=== PATIENT | male | born 1980 | race Hispanic/Latino ===

== ENCOUNTER 2018-05-09 23:04 | Emergency (ER) | payer OTHER ==
[2018-05-10] MEDS ORDERED: NA CHLORIDE 0.9% 1,000 ML ONE (00:03)
[2018-05-10] MEDS ORDERED: PANTOPRAZOLE 40 MG INJ ONE (00:17)
[2018-05-10] MEDS ORDERED: LIDOCAINE VISCOUS 2% SOLN 15 ML UDC ONE (00:20)
[2018-05-10 00:30] LABS: Absolute Lymphocytes (CBC) 2.2 K/uL (0.7-4.9); Absolute Monocytes 0.5 K/uL (0.1-1.3); Absolute Neutrophil 6.5 K/uL (1.8-8.0); Basophils % 0.7 % (0-1.3); Eosinophils % 0.6 % (0-4.4); Hematocrit 44.4 % (39.6-49.0); Lymphocytes % 23.4 % (15.3-44.8); MCH 32.1 pg (27.0-35.0); MCV 91.5 fL (80-100); MPV 9.3 fL (7.6-11.3); Monocytes % 5.8 % (3.3-12.3); RBC Red Blood Cell Count 4.86 M/uL (4.33-5.43)
[2018-05-10 00:41] LABS: ALT/SGPT 23 U/L (12-78); AST/SGOT 13 U/L (15-37); Albumin 3.6 g/dL (3.4-5.0); Alkaline Phosphatase 96 U/L (45-117); BUN Blood Urea Nitrogen 12 mg/dL (7-18); Bicarbonate 28 mmol/L (21-32); Bilirubin Direct < 0.1 mg/dL (0-0.2); Bilirubin Total 0.3 mg/dL (0.2-1.0); Glucose Level 93 mg/dL (74-106); Lipase 140 U/L (73-393); Potassium 3.4 mmol/L (3.5-5.1); Protein, Total 6.7 g/dL (6.4-8.2); Sodium Level 143 mmol/L (136-145)
[2018-05-10 01:15] LABS: Urine Bacteria <20 /HPF (NONE SEEN); Urine Culture Reflex Order NOT NEEDED; Urine RBC <5 /HPF (NONE SEEN)
[2018-05-10 01:16] LABS: Urine Blood NEGATIVE (NEG); Urine Glucose NEGATIVE (NEG); Urine Protein NEGATIVE (NEG)
--- NOTE | 2018-05-10 01:40 | ER ---
Nurse's Notes [facility] Name: Patrick Julio Jr Age: 37 yrs Sex: Male : 1980 Arrival Date: 05/09/2018 Time: 23:05 Bed 17 Private MD: Diagnosis: Vomiting;Gastritis, unspecified Presentation: 05/09 23:07 Presenting complaint: Patient states: "I haven't been feeling well all day, and about bs1 30 minutes ago I have been vomiting up dark blood." Patient denies fever. 23:07 Transition of care: patient was not received from another setting of care. Onset of bs1 symptoms was May 09, 2018 at 22:15. Risk Assessment: Do you want to hurt yourself or someone else? Patient reports no desire to harm self or others. Initial Sepsis Screen: Does the patient meet any 2 criteria? No. Patient's initial sepsis screen is negative. Does the patient have a suspected source of infection? No. Patient's initial sepsis screen is negative. Care prior to arrival: None. 23:07 Method Of Arrival: Ambulatory bs1 23:07 Acuity: MATI 3 bs1 Historical: - Allergies: 23:33 No Known Allergies; bs1 - Home Meds: 23:33 None [Active]; bs1 - PMHx: 23:33 None; bs1 - PSHx: 23:33 None; bs1 - Immunization history:: Adult Immunizations unknown. - Social history:: Smoking status: Patient/guardian denies using tobacco. - Ebola Screening: : Patient negative for fever greater than or equal to 101.5 degrees Fahrenheit, and additional compatible Ebola Virus Disease symptoms Patient denies exposure to infectious person. Screenin:39 Abuse screen: Denies threats or abuse. Denies injuries from another. Nutritional bs1 screening: No deficits noted. Tuberculosis screening: No symptoms or risk factors identified. Fall Risk None identified. Assessment: 23:15 General: Appears in no apparent distress. uncomfortable, Behavior is cooperative, bs1 anxious. 23:15 Pain: Denies pain. Neuro: Level of Consciousness is awake, alert, obeys commands, bs1 lethargic. Cardiovascular: Reports nausea, shortness of breath, vomiting, Denies chest pain, Heart tones S1 S2 present Capillary refill < 3 seconds Patient's skin is warm and dry. Respiratory: Airway is patent Trachea midline Respiratory effort is even, unlabored, Respiratory pattern is regular, symmetrical, Breath sounds are clear bilaterally. Respiratory: Reports patient states "I feel like I have fluid on my lungs.". GI: Abdomen is round. GI: Reports nausea, vomiting, reports vomiting blood. : No signs and/or symptoms were reported regarding the genitourinary system. EENT: No signs and/or symptoms were reported regarding the EENT system. EENT: Derm: Skin is intact, Skin is pink, warm \\T\\ dry. normal. Musculoskeletal: Circulation, motion, and sensation intact. Capillary refill < 3 seconds, Range of motion: intact in all extremities. 05/10 01:33 Reassessment: NG tube confirmed. Administered 60cc water x3 and connected to suction. bs1 Small amount of blood noted in canister. Became clear with intermittent small amount of streaks of blood, mucous is thick. Informed Dr Kahn. 01:55 Reassessment: Patient appears in no apparent distress at this time. Patient and/or bs1 family updated on plan of care and expected duration. Pain level reassessed. Patient is alert, oriented x 3, equal unlabored respirations, skin warm/dry/pink. Patient denies pain at this time. Patient states feeling better. Vital Signs: 05/09 23:08 BP 132 / 97; Pulse 68; Resp 16; Temp 97.9(O); Pulse Ox 99% on R/A; Weight 70.31 kg; bs1 Height 5 ft. 6 in. (167.64 cm); Pain 0/10; 05/10 00:08 BP 134 / 97; Pulse 71; Resp 16; Pulse Ox 99% on R/A; bs1 01:04 BP 129 / 95; Pulse 72; Resp 16; Pulse Ox 99% on R/A; bs1 01:56 BP 126 / 88; Pulse 77; Resp 16; Temp 98(O); Pulse Ox 100% on R/A; Pain 0/10; bs1 05/09 23:08 Body Mass Index 25.02 (70.31 kg, 167.64 cm) bs1 ED Course: 05/09 23:05 Patient arrived in ED. do 23:15 Mala Ardon, MAGDA is Primary Nurse. bs1 23:16 Layo Kahn MD is Attending Physician. gs 23:33 Triage completed. bs1 23:39 Patient has correct armband on for positive identification. Placed in gown. Bed in low bs1 position. Call light in reach. Side rails up X 1. Pulse ox on. NIBP on. 23:40 Arm band placed on left wrist. bs1 23:59 X-ray completed. Portable x-ray completed in exam room. Patient tolerated procedure kp1 well. 05/10 00:02 Abdomen 1 View XRAY In Process Unspecified. EDMS 00:30 Inserted saline lock: 20 gauge in right antecubital area, using aseptic technique. bs1 Blood collected. 00:35 NGT: inserted 12 Fr. via right nare. verified placement of air over stomach, Patient bs1 tolerated well. 00:58 Chest Single View XRAY In Process Unspecified. EDMS 01:38 Emmett Mares MD is Referral Physician. gs 01:56 No provider procedures requiring assistance completed. NGT: Removed intact. IV bs1 discontinued, bleeding controlled, No redness/swelling at site. Pressure dressing applied. Administered Medications: 00:35 Drug: NS 0.9% 1000 ml Route: IV; Rate: 1 bolus; Site: right antecubital; bs1 01:57 Follow up: IV Status: Completed infusion bs1 00:36 Drug: ProTONIX 40 mg Route: IVP; Site: right antecubital; bs1 01:31 Follow up: Response: No adverse reaction bs1 Outcome: 01:39 Discharge ordered by MD. gs 01:57 Discharged to home ambulatory. bs1 01:57 Condition: stable 01:57 Discharge instructions given to patient, Instructed on discharge instructions, follow up and referral plans. medication usage, Demonstrated understanding of instructions, follow-up care, medications, Prescriptions given X 2. 01:58 Patient left the ED. bs1 Signatures: Dispatcher [employer] EDDC Alisha Webb Kathy kp1 Layo Kahn MD MD Mala Ardon RN RN bs1 Corrections: (The following items were deleted from the chart) 05/09 23:33 23:31 Presenting complaint: Patient states: "I haven't been feeling well all day, and bs1 about 30 minutes ago I have been vomiting up dark blood." Patient denies fever. bs1
--- NOTE | 2018-05-10 01:40 | EDPHYS ---
Physician Documentation [facility] Name: Patrick Julio Jr Age: 37 yrs Sex: Male : 1980 Arrival Date: 05/09/2018 Time: 23:05 Bed 17 Private MD: ED Physician Layo Kahn HPI: 05/10 00:57 This 37 yrs old Male presents to ER via Ambulatory with complaints of Vomiting gs Blood. 00:57 The patient presents to the emergency department vomiting blood, a moderate amount, gs approximately 2 cup(s) of full, dark brown, with multiple such episodes. Onset: The symptoms/episode began/occurred acutely, yesterday. Abdominal pain: described as crampy. Modifying factors: The symptoms are alleviated by nothing, the symptoms are aggravated by nothing. Associated signs and symptoms: Pertinent negatives: dizziness at rest, dizziness when standing, syncope, near-syncope. Severity of symptoms: At their worst the symptoms were severe in the emergency department the symptoms have improved markedly. It is unknown whether or not the patient has had similar symptoms in the past. The patient has not recently seen a physician. Historical: - Allergies: 05/09 23:33 No Known Allergies; bs1 - Home Meds: 23:33 None [Active]; bs1 - PMHx: 23:33 None; bs1 - PSHx: 23:33 None; bs1 - Immunization history:: Adult Immunizations unknown. - Social history:: Smoking status: Patient/guardian denies using tobacco. - Ebola Screening: : Patient negative for fever greater than or equal to 101.5 degrees Fahrenheit, and additional compatible Ebola Virus Disease symptoms Patient denies exposure to infectious person. ROS: 05/10 00:57 All other systems are negative. gs Exam: 00:57 Head/Face: Normocephalic, atraumatic. Eyes: Pupils equal round and reactive to light, gs extra-ocular motions intact. Lids and lashes normal. Conjunctiva and sclera are non-icteric and not injected. Cornea within normal limits. Periorbital areas with no swelling, redness, or edema. ENT: Nares patent. No nasal discharge, no septal abnormalities noted. Tympanic membranes are normal and external auditory canals are clear. Oropharynx with no redness, swelling, or masses, exudates, or evidence of obstruction, uvula midline. Mucous membranes moist. Neck: Trachea midline, no thyromegaly or masses palpated, and no cervical lymphadenopathy. Supple, full range of motion without nuchal rigidity, or vertebral point tenderness. No Meningismus. Chest/axilla: Normal chest wall appearance and motion. Nontender with no deformity. No lesions are appreciated. Cardiovascular: Regular rate and rhythm with a normal S1 and S2. No gallops, murmurs, or rubs. Normal PMI, no JVD. No pulse deficits. Respiratory: Lungs have equal breath sounds bilaterally, clear to auscultation and percussion. No rales, rhonchi or wheezes noted. No increased work of breathing, no retractions or nasal flaring. Back: No spinal tenderness. No costovertebral tenderness. Full range of motion. Skin: Warm, dry with normal turgor. Normal color with no rashes, no lesions, and no evidence of cellulitis. MS/ Extremity: Pulses equal, no cyanosis. Neurovascular intact. Full, normal range of motion. Neuro: Awake and alert, GCS 15, oriented to person, place, time, and situation. Cranial nerves II-XII grossly intact. Motor strength 5/5 in all extremities. Sensory grossly intact. Cerebellar exam normal. Normal gait. 00:57 Constitutional: The patient appears alert, awake. 00:57 Abdomen/GI: Inspection: abdomen appears normal, Palpation: abdomen is soft and non-tender, in all quadrants, rebound tenderness, is not appreciated. Vital Signs: 05/09 23:08 BP 132 / 97; Pulse 68; Resp 16; Temp 97.9(O); Pulse Ox 99% on R/A; Weight 70.31 kg; bs1 Height 5 ft. 6 in. (167.64 cm); Pain 0/10; 05/10 00:08 BP 134 / 97; Pulse 71; Resp 16; Pulse Ox 99% on R/A; bs1 01:04 BP 129 / 95; Pulse 72; Resp 16; Pulse Ox 99% on R/A; bs1 01:56 BP 126 / 88; Pulse 77; Resp 16; Temp 98(O); Pulse Ox 100% on R/A; Pain 0/10; bs1 05/09 23:08 Body Mass Index 25.02 (70.31 kg, 167.64 cm) bs1 MDM: 05/09 23:33 Patient medically screened. gs 05/10 00:57 Differential diagnosis: gastritis, hemorrhagic shock, varices, PUD. Data reviewed: vital signs, nurses notes. Response to treatment: the patient's symptoms have markedly improved after treatment, and as a result, I will. 01:38 ED course: LAVAGED STOMACH NO BLOOD CLEAR PLAN DISCHARGE. 05/09 23:43 Order name: Basic Metabolic Panel; Complete Time: 01:06 05/09 23:43 Order name: CBC with Diff; Complete Time: 01:06 05/09 23:43 Order name: Hepatic Function; Complete Time: 01:06 05/09 23:43 Order name: Lipase; Complete Time: 01:06 05/09 23:43 Order name: Urine Microscopic Only 05/10 00:15 Order name: Urine Dipstick--Ancillary (enter results) [facility] 05/09 23:43 Order name: IV Saline Lock; Complete Time: 00:36 05/09 23:43 Order name: Labs collected and sent; Complete Time: 00:37 05/09 23:43 Order name: Urine Dipstick-Ancillary (obtain specimen); Complete Time: 00:37 05/09 23:45 Order name: NG Tube: LAVAGE UNTIL CLEAR; Complete Time: 00:35 05/09 23:45 Order name: Abdomen 1 View XRAY 05/10 00:38 Order name: Chest Single View XRAY bs1 Administered Medications: 00:35 Drug: NS 0.9% 1000 ml Route: IV; Rate: 1 bolus; Site: right antecubital; bs1 01:57 Follow up: IV Status: Completed infusion bs1 00:36 Drug: ProTONIX 40 mg Route: IVP; Site: right antecubital; bs1 01:31 Follow up: Response: No adverse reaction bs1 Disposition: 05/10/18 01:39 Discharged to Home. Impression: Vomiting, Gastritis, unspecified. - Condition is Stable. - Discharge Instructions: Nausea and Vomiting, Adult, Form - Excuse from Work, School, or Physical Activity. - Prescriptions for Pepcid 20 mg Oral Tablet - take 1 tablet by ORAL route once daily; 20 tablet. Zofran 4 mg Oral Tablet - take 1 tablet by ORAL route every 12 hours As needed; 6 tablet. - Medication Reconciliation Form, Thank You Letter, Antibiotic Education, Prescription Opioid Use form. - Follow up: Private Physician; When: 2 - 3 days; Reason: Re-evaluation by your physician. Follow up: Emmett Mares MD; When: 2 - 3 days; Reason: Re-evaluation by your physician. Signatures: Dispatcher [employer] EDMS Layo Kahn MD MD gs Salazar, Brittany, RN RN bs1 Corrections: (The following items were deleted from the chart) 01:58 01:39 05/10/2018 01:39 Discharged to Home. Impression: Vomiting; Gastritis, bs1 unspecified. Condition is Stable. Forms are Medication Reconciliation Form, Thank You Letter, Antibiotic Education, Prescription Opioid Use. Follow up: Private Physician; When: 2 - 3 days; Reason: Re-evaluation by your physician. Follow up: Emmett Mares; When: 2 - 3 days; Reason: Re-evaluation by your physician.
--- NOTE | 2018-05-10 08:27 | RAD REPORT ---
EXAM DESCRIPTION: RAD - Chest Single View - 05/10/2018 12:58 am CLINICAL HISTORY: NG tube placement Chest pain. COMPARISON: Chest Single View dated 08/23/2017; Chest Single View dated 02/19/2016; CHEST SINGLE VIEW d ated 09/29/2009; CHEST PA AND LAT 2 VIEW dated 02/07/2009 FINDINGS: Portable technique limits examination quality. The enteric tube appears folded upon itself in the stomach.
--- NOTE | 2018-05-10 08:33 | RAD REPORT ---
EXAM DESCRIPTION: RAD - Abdomen Single View - 05/10/2018 12:01 am CLINICAL HISTORY: Vomiting Pain COMPARISON: Stone Protocol dated 05/14/2016 FINDINGS: The bowel gas pattern is non-obstructive. No evidence of free air or pneumatosis. No suspi cious calcifications. No significant bony findings. IMPRESSION: Negative examination.
== END 2018-05-10 01:58 | disposition home or self-care (01) ==
LOC: ER 23:04
DX: K92.0 Hematemesis (principal); K29.70 Gastritis, unspecified, without bleeding
CPT/HCPCS: 36415; 71045; 74018; 80048; 80076; 83690; 85025; 96361; 96374; 99284; C9113; J7030; 81003; 81015